=== PATIENT | female | born 1990 | race Caucasian/White ===

== ENCOUNTER → 2017-08-01 | Outpatient (CLI) | payer OTHER | LOC: HYPER 07:15 | DX: S71.152D Open bite, left thigh, subsequent encounter (principal); J45.909 Unspecified asthma, uncomplicated; Z72.89 Other problems related to lifestyle; Y92.834 Zoological garden (Zoo) as the place of occurrence of the external cause; W56 Contact with nonvenomous marine animal ==